=== PATIENT | male | born 1970 | race Caucasian/White ===

== ENCOUNTER 2016-10-05 23:20 | Emergency (ER) | payer OTHER ==
[~2016-10-05] VITALS: Ht 175.3 cm; Wt 74.8 kg
[2016-10-05 23:30] VITALS: BP 156/102
--- NOTE | 2016-10-06 00:01 | NUR ---
PT TAKEN TO BED 3
--- NOTE | 2016-10-06 00:07 | NUR ---
PATIENT PRESENTS TO ED WITH C/O CP AND HIGH BP X 1 DAY, PT DENIES ANY STRESS OR PAIN PRIOR TO HAVING THE CP . PT STATE CP RADIATES TO LEFT ARM FEELING TINGLING. PT DENIES N/V/D; SKIN IS PINK/WARM/DRY; AAOX4 WITH EVEN AND STEADY GAIT; LUNGS CLEAR BL; HR EVEN AND REGULAR; PT DENIES ANY FEVER, SOB, OR COUGH AT THIS TIME; PATIENT STATES PAIN OF 8/10 AT THIS TIME; VSS; PATIENT POSITIONED FOR COMFORT; HOB ELEVATED; BEDRAILS UP X2; BED DOWN. ER MD MADE AWARE OF PT STATUS.
--- NOTE | 2016-10-06 00:08 | NUR ---
Dr. Hernández evaluating patient at bedside.
--- NOTE | 2016-10-06 00:28 | NUR ---
X-Ray at bedside.
[2016-10-06] MEDS ORDERED: NACL 0.9% 1,000 ML IV ONE (01:55)
[2016-10-06] MEDS ORDERED: DOCUSATE SODIUM 100 MG GELCAP PO PRN (01:55)
[2016-10-06] MEDS ORDERED: ONDANSETRON 4 MG/2 ML VIAL IVP PRN (01:55)
[2016-10-06] MEDS ORDERED: HYDROcodone/APAP 5/325 MG 1 TAB TAB PO PRN (01:55)
[2016-10-06] MEDS ORDERED: ACETAMINOPHEN 325 MG TAB PO PRN (01:55)
[2016-10-06] MEDS ORDERED: MORPHINE SULFATE 2 MG/ML SYR IVP PRN (01:55)
[2016-10-06] MEDS ORDERED: ATORVASTATIN 20 MG TAB PO SCH (02:00)
[2016-10-06] MEDS ORDERED: ECOTRIN 81 MG TABEC PO SCH (02:00)
[2016-10-06] MEDS ORDERED: LISINOPRIL 10 MG TAB PO SCH (02:00)
[2016-10-06] MEDS ORDERED: METOPROLOL 25 MG TAB PO SCH (02:00)
--- NOTE | 2016-10-06 02:19 | NUR ---
Pupils equal and reactive to light bilaterally. No facial droop noted. No smile deficit noted. Speech normal for patient. Patient is alert and oriented to person, place, time and event. Bilateral hand cost accounting manager equal. Bilateral foot push equal.
--- NOTE | 2016-10-06 02:28 | NUR ---
Patient does not wish to proceed with medical care recommended by ED. Patient given information related to possible complications, up to and including , which could occur as a result of leaving hospital at this time. Patient verbalizes understanding of risks involved leaving against medical advice. Patient has signed AMA form.
[2016-10-06 02:29] VITALS: BP 134/100
[2016-10-06] MEDS ORDERED: PANTOPRAZOLE 40 MG TABEC PO SCH (09:00)
== END 2016-10-06 02:28 | disposition left against medical advice (07) ==
LOC: MED 23:20 → MTU 10-06 01:58 → UNDOADMIN 10-06 01:58 → MED 10-06 02:28
DX: R07.89 Other chest pain (principal); J45.909 Unspecified asthma, uncomplicated